=== PATIENT | female | born 1975 | race African-American/Black ===

== ENCOUNTER 2016-12-17 15:49 | Emergency (ER) | payer MEDICAID ==
[~2016-12-17 15:49] MED LIST: AMOX875T PO; FLUT1SPR9 EACH NARE; IBUP-232 PO; NAPR-576 PO
[2016-12-17 15:51] VITALS: BP 148/102; PULSE 82; RESP 16; TEMP 98.2; O2SAT 99
[2016-12-17 16:21] VITALS: BP_SYST 8
[2016-12-17] MEDS ORDERED: MAGICADU2 SWISH-SPIT (18:15)
[2016-12-17] MEDS ORDERED: PERI0.126 SWISH-SPIT (18:15)
[2016-12-17] MEDS ORDERED: AMOX500T PO (18:15)
--- NOTE | 2016-12-17 18:16 | PD ---
HPI Chief Complaint: Facial Pain or Swelling Time Seen by Provider: 18:12 Travel History International Travel<30 days: No Contact w/Intl Traveler<30days: No Traveled to known affect area: No History of Present Illness HPI 41-year-old female presents to the emergency Department with complaint of left facial pain 4 days. Pain radiates to her left ear. She has history of migraine headaches and is supposed to take Topamax but doesn't. Denies facial edema, erythema. She does have a left upper tooth that was supposed to have a root canal but she hasn't had done. Denies fever, chills, nausea, vomiting. Denies recent illness to include cough, nasal congestion, ear pain, sore throat. Has taken ibuprofen with some relief of pain. Has put a heating pack to her left face with good relief of pain. No known aggravating factors. Patient reports being allergic to Augmentin, Percocet, prednisone, Zithromax. She cannot take Augmentin because it makes her vomit. She requests amoxicillin as antibiotic if she has to take an antibiotic. No other modifying factors or associated signs and symptoms. PFSH Past Medical History Diminished Hearing: No Headaches: Yes Immunizations Current: No Migraines: Yes : 2 Para: 2 Dilation and Curettage (D&C): Yes Tubal Ligation: Yes Past Surgical History Genitourinary Surgery: Yes (UTERINE ABLASION) Gynecologic Surgery: Yes (UTERINE ABLATION) Hysterectomy: Yes (PARTIAL 2012) Social History Alcohol Use: No Tobacco Use: No Substance Use: No Allergies-Medications (Allergen,Severity, Reaction): Coded Allergies: Percocet (Verified Allergy, Severe, ITCHING, 12/17/16) Zithromax (Verified Allergy, Severe, Joint Pain, 12/17/16) Prednisone (Verified Allergy, Intermediate, 12/17/16) joint pain Augmentin (Verified Adverse Reaction, Intermediate, Nausea/Vomiting, ) Reported Meds & Prescriptions Reported Meds & Active Scripts Active Magic Mouthwash Adult Liq (Multi-Ingredient Mouthwash/Gargle) 120 Ml Susp 5 Ml SWISH-SPIT Q3HR PRN Each 5 mL contains: Nystatin 200,000 units, Diphenhydramine 4.25 mg, Viscous Lidocaine 10 mg, Mann syrup 0.8 mL Peridex Liq (Chlorhexidine Gluconate (Mouth) Liq) 0.12% Soln 15 Ml SWISH-SPIT BID 10 Days Amoxicillin 500 Mg Tab 500 Mg PO BID 10 Days Ibuprofen 600 Mg Tab 600 Mg PO Q6H PRN Flonase Allergy Relief Children Nasal [place] (Fluticasone Nasal [place]) 50 Mcg/ Act [place] 2 [place] EACH NARE DAILY 50 mcg/spray Amoxicillin 875 Mg Tab 875 Mg PO BID Naproxen 500 Mg Tab 500 Mg PO Q12HR PRN Review of Systems Except as stated in HPI: all other systems reviewed are Neg Physical Exam Narrative GENERAL: Well-nourished, well-developed female patient, in no acute distress; afebrile, nontoxic-appearing SKIN: Warm and dry. HEAD: Atraumatic. Normocephalic. No facial edema, erythema, tenderness on palpation. No lymphadenopathy. EYES: Pupils equal and round at 3 mm with brisk reaction. No scleral icterus. No injection or drainage. PERRLA. ENT: Mucosa pink and moist. No erythema or exudates. No uvular edema. No uvular , palatal, or tonsillar deviation. Airway patent. Nasal turbinates appear normal without nasal blood, purulent drainage or septal hematoma. EARS: Bilateral pinnae and external canals appear within normal limits. Bilateral tympanic membranes without erythema, dullness or perforation. MOUTH: Mucous membranes moist, no lesions, tongue and gums appear normal. Left upper tooth #13 with large dental caries and tenderness on palpation; surrounding gingiva is without obvious abscess, erythema, edema, drainage. NECK: Trachea midline. No lymphadenopathy. CARDIOVASCULAR: Regular rate and rhythm. No murmur appreciated. RESPIRATORY: No accessory muscle use. Breath sounds clear and equal bilaterally. GASTROINTESTINAL: Abdomen soft, non-tender, nondistended. Positive bowel sounds. No hepato-splenomegaly, or palpable masses. No guarding. MUSCULOSKELETAL: No obvious deformities. No clubbing. No cyanosis. No edema. NEUROLOGICAL: Awake and alert. Oriented 3. No obvious cranial nerve deficits. Motor grossly within normal limits. Normal speech. PSYCHIATRIC: Appropriate mood and affect; insight and judgment normal. Data Data Last Documented VS Vital Signs Date Time Temp Pulse Resp B/P Pulse Ox O2 Delivery O2 Flow Rate FiO2 12/17/16 16:21 812/17/16 15:51 98.2 82 16 99 MDM Medical Decision Making Medical Screen Exam Complete: Yes Emergency Medical Condition: Yes Medical Record Reviewed: Yes Differential Diagnosis Dentalgia, dental abscess, otitis media, sinusitis, migraine headache Narrative Course 41-year-old female physical exam consistent with left upper tooth #13 dentalgia and possible dental abscess. The tooth is with tenderness on palpation. Patient has adverse reaction to Augmentin of vomiting. She says she can take amoxicillin and requests it. Amoxicillin, Peridex mouth rinse, Magic mouthwash prescribed for home. Patient has ibuprofen. Instructed patient to follow up with dentist. Patient is medically cleared and stable for discharge. Discussed reasons to return to the emergency department. Instructed patient to follow up with primary care provider. Patient agrees with treatment plan. The patients vital signs are stable and the patient is stable for outpatient follow- up and treatment. Patient discharged home, stable and in no acute distress. Diagnosis Primary Impression: Dentalgia Referrals: Dentist Primary Care Physician Patient Instructions: Dental Abscess (ED), Dental Caries (ED), General Instructions, Toothache (ED) Additional Instructions: Complete full course of antibiotics Ibuprofen as directed and as needed to reduce pain and inflammation Use Magic mouthwash rinse as directed and as needed to decrease pain Use Peridex as directed for oral hygiene Warm compresses to the affected area Follow-up with dentist Follow-up with primary care provider Return to emergency department immediately with worsening of symptoms Med/Other Pt SpecificInfo: Prescription(s) given Scripts Zlkevveh-Wqxuzpmgzfvwvbl-Llytbmzpu Liq (Magic Mouthwash Adult Liq)120 Ml Susp5 Ml SWISH-SPIT Q3HR PRN (PAIN SCALE 1 TO 10) #120 ML Ref 0 Each 5 mL contains: Nystatin 200,000 units, Diphenhydramine 4.25 mg, Viscous Lidocaine 10 mg, Mann syrup 0.8 mL Prov:Lizet Burk 12/17/16 Chlorhexidine Gluconate (Mouth) Liq (Peridex Liq)0.12% Soln15 Ml SWISH-SPIT BID 10 Days Ref 0 Prov:Lizet Burk 12/17/16 Amoxicillin 500 Mg [id number] Mg PO BID 10 Days Ref 0 Prov:Lizet Burk 12/17/16 Disposition: DISCHARGE HOME Condition: Stable Lizet Burk Dec 17, 2016 18:16
== END 2016-12-17 18:37 | disposition home or self-care (01) ==
LOC: NEPB 15:49
DX: K08.89 Other specified disorders of teeth and supporting structures (principal)
CPT/HCPCS: 99283

== ENCOUNTER 2017-02-01 16:27 | Emergency (ER) | payer OTHER, MEDICAID ==
[~2017-02-01] VITALS: Ht 157.5 cm; Wt 68.0 kg
[~2017-02-01 16:27] MED LIST changes: +AMOX500T PO; +MAGICADU2 SWISH-SPIT; +PERI0.126 SWISH-SPIT
[2017-02-01 16:29] VITALS: BP 155/106; PULSE 90; RESP 20; TEMP 97.7; O2SAT 98
--- NOTE | 2017-02-01 18:49 | PD ---
HPI Chief Complaint: Cold / Flu Symptoms Time Seen by Provider: 18:49 Travel History International Travel<30 days: No Contact w/Intl Traveler<30days: No Traveled to known affect area: No History of Present Illness HPI 41-year-old female with no significant medical history presents to the emergency department for evaluation of cough, chest congestion, fever, sore throat worsening over last 4 days. Patient states her cough has been nonproductive. No nuchal rigidity. No visual disturbances. Denies any nausea , vomiting, diarrhea. Has no other symptoms to report. PFSH Past Medical History Medical History: Denies Significant Hx Diminished Hearing: No Headaches: Yes Immunizations Current: No Migraines: Yes : 2 Para: 2 Dilation and Curettage (D&C): Yes Tubal Ligation: Yes Past Surgical History Genitourinary Surgery: Yes (UTERINE ABLASION) Gynecologic Surgery: Yes (UTERINE ABLATION) Hysterectomy: Yes (PARTIAL) Social History Alcohol Use: No Tobacco Use: No Substance Use: No Allergies-Medications (Allergen,Severity, Reaction): Coded Allergies: Percocet (Verified Allergy, Severe, ITCHING, 02/01/17) Zithromax (Verified Allergy, Severe, Joint Pain, 02/01/17) Prednisone (Verified Allergy, Intermediate, 02/01/17) joint pain Augmentin (Verified Adverse Reaction, Intermediate, Nausea/Vomiting, ) Reported Meds & Prescriptions Reported Meds & Active Scripts Active Magic Mouthwash Adult Liq (Multi-Ingredient Mouthwash/Gargle) 120 Ml Susp 5 Ml SWISH-SPIT Q3HR PRN Each 5 mL contains: Nystatin 200,000 units, Diphenhydramine 4.25 mg, Viscous Lidocaine 10 mg, Mann syrup 0.8 mL Peridex Liq (Chlorhexidine Gluconate (Mouth) Liq) 0.12% Soln 15 Ml SWISH-SPIT BID 10 Days Amoxicillin 500 Mg Tab 500 Mg PO BID 10 Days Ibuprofen 600 Mg Tab 600 Mg PO Q6H PRN Flonase Allergy Relief Children Nasal [place] (Fluticasone Nasal [place]) 50 Mcg/ Act [place] 2 [place] EACH NARE DAILY 50 mcg/spray Amoxicillin 875 Mg Tab 875 Mg PO BID Naproxen 500 Mg Tab 500 Mg PO Q12HR PRN Review of Systems Except as stated in HPI: all other systems reviewed are Neg Physical Exam Narrative GENERAL: Well-nourished, well-developed female patient, no acute distress SKIN: Warm and dry. HEAD: Normocephalic. Atraumatic EYES: No scleral icterus. No injection or drainage. ENT: Mucosa pink and moist. No erythema without exudates. No uvular edema. No uvular, palatal, or tonsillar deviation. Airway patent. Nasal turbinates appear inflamed without nasal blood, purulent drainage or septal hematoma. NECK: Supple, trachea midline. Anterior cervical lymphadenopathy. CARDIOVASCULAR: Regular rate and rhythm without murmurs, gallops, or rubs. RESPIRATORY: Breath sounds equal bilaterally. No accessory muscle use. GASTROINTESTINAL: Abdomen soft, non-tender, nondistended. MUSCULOSKELETAL: No cyanosis, or edema. BACK: Nontender without obvious deformity. No CVA tenderness. Data Data Last Documented VS Vital Signs Date Time Temp Pulse Resp B/P Pulse Ox O2 Delivery O2 Flow Rate FiO2 02/01/17 18:37 Room Air 02/01/17 16:29 97.7 90 20 155/106 98 Orders Influenzae A/B Antigen (02/01/17 18:46) Group A Rapid Strep Screen (02/01/17 18:46) MDM Medical Decision Making Medical Screen Exam Complete: Yes Emergency Medical Condition: Yes Medical Record Reviewed: Yes Differential Diagnosis Influenza versus pharyngitis viral versus strep versus viral syndrome versus pneumonia Narrative Course 41-year-old female presents to the emergency department for evaluation. Patient appears overall well. She is afebrile here. Influenza rapid strep screen are sent. Patient is signed out to JERRY Valle. Disposition will pend his judgment. Condition: Stable Janneth Snow Feb 01, 2017 18:49
--- NOTE | 2017-02-01 19:25 | RADRPT ---
EXAM DATE/TIME: 02/01/2017 19:04 [facility] COMPARISON: No previous studies available for comparison. INDICATIONS : Severe cough for 4 days. MEDICAL HISTORY : None. SURGICAL HISTORY : None. ENCOUNTER: Initial ACUITY: 4 - 6 days PAIN SCORE: 1/10 LOCATION: Bilateral chest FINDINGS: No infiltrate, effusion or pneumothorax. Heart size is stable, upper limits of normal. Thoracic aorta is mildly tortuous. CONCLUSION: No pneumonia or other acute cardiopulmonary disease demonstrated. Boston Mccann MD on February 01, 2017 at 19:23 Board Certified Radiologist. This report was verified electronically.
--- NOTE | 2017-02-01 19:47 | PD ---
Physical Exam Date Seen by Provider: Feb 01, 2017 Time Seen by Provider: 19:45 Data Data Last Documented VS Vital Signs Date Time Temp Pulse Resp B/P Pulse Ox O2 Delivery O2 Flow Rate FiO2 02/01/17 18:37 Room Air 02/01/17 16:29 97.7 90 20 155/106 98 Orders Influenzae A/B Antigen (02/01/17 18:46) Group A Rapid Strep Screen (02/01/17 18:46) Chest, Single Ap (02/01/17 ) Strep Culture (Group A) (02/01/17 18:50) MDM Medical Record Reviewed: Yes Supervised Visit with JANEY: No Interpretation(s) Last 24 hours Impressions Chest X-Ray 02/01/17 0000 Signed Impressions: Service Date/Time: Wednesday, February 01, 2017 19:04 - CONCLUSION: No pneumonia or other acute cardiopulmonary disease demonstrated. Boston Mccann MD Rapid strep: Negative Influenza: Negative Differential Diagnosis MDM: High Differential diagnoses: Pneumonia, bronchitis, URI, asthma, RAD, strep throat, influenza Narrative Course The patient's influenza is negative. The rapid strep is negative. Chest x- rays negative. This is URI Diagnosis Primary Impression: URI (upper respiratory infection) Qualified Code: J06.9 - Viral upper respiratory tract infection Patient Instructions: General Instructions Departure Forms: Tests/Procedures, Work Release Special Instructions: No work 2-3 days Additional Instruction: Rest. Increase fluids. Tylenol and Advil. Robitussin-DM. Followup with your Dr. in one week. Return to the ER for any problems. Med/Other Pt SpecificInfo: No Change to Meds Disposition: 01 DISCHARGE HOME Condition: Stable Дмитрий Robles Feb 01, 2017 19:47
== END 2017-02-01 20:12 | disposition home or self-care (01) ==
LOC: NEPB 16:27
DX: J06.9 Acute upper respiratory infection, unspecified (principal)
CPT/HCPCS: 71010; 87081; 87804; 87880; 99283

== ENCOUNTER 2017-03-16 17:59 | Emergency (ER) | payer MEDICAID ==
[~2017-03-16] VITALS: Ht 154.9 cm; Wt 68.0 kg
[2017-03-16 18:04] VITALS: BP 197/118; PULSE 67; RESP 20; TEMP 97.7; O2SAT 98
[2017-03-16 18:14] VITALS: BP 169/100; PULSE 68
== END 2017-03-16 19:00 | disposition left against medical advice (07) ==
LOC: NED 17:59
DX: R51 Headache (principal); Z53.21 Procedure and treatment not carried out due to patient leaving prior to being seen by health care provider
CPT/HCPCS: 99281

== ENCOUNTER 2017-04-22 15:35 | Emergency (ER) | payer MEDICAID ==
[~2017-04-22] VITALS: Ht 154.9 cm; Wt 67.0 kg
[2017-04-22 15:37] VITALS: BP 154/106; PULSE 85; RESP 20; TEMP 98; O2SAT 98
[2017-04-22] MEDS ORDERED: FLUT1SPR9 EACH NARE (16:05)
[2017-04-22] MEDS ORDERED: CIPR500T2 PO (16:05)
--- NOTE | 2017-04-22 16:09 | PD ---
HPI Chief Complaint: Headache Time Seen by Provider: 16:05 Travel History International Travel<30 days: No Contact w/Intl Traveler<30days: No Traveled to known affect area: No History of Present Illness HPI 42-year-old black female presents to emergency department complaints of left maxillary sinus pressure and pain. She states that she has had problems with allergies and sinus in the past. She has been on Flonase. Now for the past few weeks she's had increasing pressure and pain. She denies any fever chills. No ear pain. Positive runny nose and congestion. No nausea vomiting. No abdominal pain or diarrhea. Patient states that she uses her Flonase intermittently. She's been using [id number] Mucinex without relief. History of migraines but does not feel that this is a migraine headache. PFSH Past Medical History Narrative Medical Migraines, sinus disease Diminished Hearing: No Headaches: Yes Immunizations Current: No Migraines: Yes : 2 Para: 2 Dilation and Curettage (D&C): Yes Tubal Ligation: Yes Past Surgical History Narrative Surgical Tubal ligation, hysterectomy Genitourinary Surgery: Yes (UTERINE ABLASION) Gynecologic Surgery: Yes (UTERINE ABLATION) Hysterectomy: Yes (PARTIAL) Social History Alcohol Use: No Tobacco Use: No Substance Use: No Allergies-Medications (Allergen,Severity, Reaction): Coded Allergies: Percocet (Verified Allergy, Severe, ITCHING, 04/22/17) Zithromax (Verified Allergy, Severe, Joint Pain, 04/22/17) Prednisone (Verified Allergy, Intermediate, 04/22/17) joint pain Augmentin (Verified Adverse Reaction, Intermediate, Nausea/Vomiting, ) Reported Meds & Prescriptions Reported Meds & Active Scripts Active Magic Mouthwash Adult Liq (Multi-Ingredient Mouthwash/Gargle) 120 Ml Susp 5 Ml SWISH-SPIT Q3HR PRN Each 5 mL contains: Nystatin 200,000 units, Diphenhydramine 4.25 mg, Viscous Lidocaine 10 mg, Mann syrup 0.8 mL Peridex Liq (Chlorhexidine Gluconate (Mouth) Liq) 0.12% Soln 15 Ml SWISH-SPIT BID 10 Days Amoxicillin 500 Mg Tab 500 Mg PO BID 10 Days Ibuprofen 600 Mg Tab 600 Mg PO Q6H PRN Flonase Allergy Relief Children Nasal [place] (Fluticasone Nasal [place]) 50 Mcg/ Act [place] 2 [place] EACH NARE DAILY 50 mcg/spray Amoxicillin 875 Mg Tab 875 Mg PO BID Naproxen 500 Mg Tab 500 Mg PO Q12HR PRN Review of Systems Except as stated in HPI: all other systems reviewed are Neg Physical Exam Narrative GENERAL: Well-developed, well-nourished in no acute distress. Nontoxic appearing. HEAD: Normocephalic, positive pain on percussion of the left maxillary sinus. EYES: Pupils equal round and reactive. Extraocular motions intact. No scleral icterus. No injection or drainage. ENT: TMs clear without erythema. The external auditory canals clear. Nose: clear . Edema of the turbinates. Posterior pharynx is pink and moist. No tonsillar edema or exudate. Uvula midline. Airway patent. NECK: Trachea midline.Supple, nontender, moves head freely. No central bony tenderness or spasm. CARDIOVASCULAR: Regular rate and rhythm without murmurs, gallops, or rubs. RESPIRATORY: Clear to auscultation. Breath sounds equal bilaterally. No wheezes , rales, or rhonchi. GASTROINTESTINAL: Abdomen soft, non-tender, nondistended. No hepato-splenomegaly , or palpable masses. No guarding. EXTREMITIES: No clubbing, cyanosis, or edema. No joint tenderness, effusion, or edema noted. BACK: Nontender without deformity or crepitance. No flank tenderness. Data Data Last Documented VS Vital Signs Date Time Temp Pulse Resp B/P Pulse Ox O2 Delivery O2 Flow Rate FiO2 04/22/ 15:37 98.0 85 20 154/106 98 Room Air MDM Medical Decision Making Medical Screen Exam Complete: Yes Emergency Medical Condition: Yes Medical Record Reviewed: Yes Differential Diagnosis Differential diagnosis: Otitis media, sinusitis, mastoiditis, migraine Narrative Course Patient will be treated for acute left maxillary sinusitis Diagnosis Primary Impression: acute left maxillary sinusitis Patient Instructions: General Instructions Additional Instructions: Rest. Increase fluids. Sudafed. Rosa pot Cipro and nasal steroid. (Must use nasal steroid daily on a continuous basis for relief. Was ( Follow-up with a medical doctor in one week. Med/Other Pt SpecificInfo: Prescription(s) given Scripts Ciprofloxacin 500 Mg [id number] Mg PO BID #20 TAB Ref 0 Prov:Bert Balderas MD 04/22/17 Fluticasone Nasal [place] (Flonase Allergy Relief Children Nasal [place])50 Mcg/Act Spray2 [place] EACH NARE DAILY #1 BOTTLE 50 mcg/spray Prov:Bert Balderas MD 04/22/17 Disposition: 01 DISCHARGE HOME Condition: Stable Дмитрий Robles April 22, 2017 16:09
== END 2017-04-22 16:27 | disposition home or self-care (01) ==
LOC: NEPK 15:35
DX: J01.00 Acute maxillary sinusitis, unspecified (principal)
CPT/HCPCS: 99284

== ENCOUNTER 2017-04-28 21:58 | Emergency (ER) | payer MEDICAID ==
[~2017-04-28 21:58] MED LIST changes: +CIPR500T2 PO
[2017-04-28 22:00] VITALS: BP 187/118; PULSE 81; RESP 18; TEMP 98.5; O2SAT 98
--- NOTE | 2017-04-28 22:05 | PD ---
Physical Exam Time Seen by Provider: 22:02 Narrative 42yo F c/o COATS and sinus infection x 1week. HX of similar COATS's. Did not finish Cipro that was prescribed for sinus infection because they made her feel sick. Reports nausea without vomiting. Denies fever. Patient seen in triage. VS reviewed. Awaiting bed placement. Data Data Last Documented VS Vital Signs Date Time Temp Pulse Resp B/P Pulse Ox O2 Delivery O2 Flow Rate FiO2 04/28/17 22:00 98.5 81 18 187/118 98 Room Air MDM Supervised Visit with JANEY: Lizet Gee April 28, 2017 22:05
[2017-04-28] MEDS ORDERED: PROCHLORPERAZINE INJ 10 MG/2 ML VIAL IV PUSH ONE (22:45)
[2017-04-28] MEDS ORDERED: KETOROLAC TROMETHAMINE 30 MG/ML (IVP) VIAL IV PUSH ONE (22:45)
--- NOTE | 2017-04-28 22:50 | PD ---
HPI Chief Complaint: Headache Time Seen by Provider: 22:34 Travel History International Travel<30 days: No Contact w/Intl Traveler<30days: No Traveled to known affect area: No History of Present Illness HPI 42yo F with PMH of migraine headache presents to the ED with c/o right sided headache for about 1 week. Pt was here and diagnosed with sinusitis on 04/22/17 and given ciprofloxacin. States headache is relieved with advil but it returns. Associated with phonophobia, photophobia and nausea. Denies any trauma, fever, visual changes, chest pain, sob, n/v, abdominal pain, focal weakness or numbness. Pt has been here multiple times for similar headaches and states tramadol helps. Pt has seen a neurologist and had extensive work up with MRI and states she tried topamax but didnt like it so she is not on anything for her headache. PFSH Past Medical History Diminished Hearing: No Headaches: Yes Immunizations Current: No Migraines: Yes ?: Not : 2 Para: 2 Dilation and Curettage (D&C): Yes Tubal Ligation: Yes Past Surgical History Genitourinary Surgery: Yes (UTERINE ABLASION) Gynecologic Surgery: Yes (UTERINE ABLATION) Hysterectomy: Yes (PARTIAL) Social History Alcohol Use: No Tobacco Use: No Substance Use: No Allergies-Medications (Allergen,Severity, Reaction): Coded Allergies: Percocet (Verified Allergy, Severe, ITCHING, 04/28/17) Zithromax (Verified Allergy, Severe, Joint Pain, 04/28/17) Prednisone (Verified Allergy, Intermediate, 04/28/17) joint pain Augmentin (Verified Adverse Reaction, Intermediate, Nausea/Vomiting, ) Reported Meds & Prescriptions Reported Meds & Active Scripts Active Amlodipine (Amlodipine Besylate) 5 Mg Tab 5 Mg PO DAILY 14 Days Tylenol (Acetaminophen) 325 Mg Tab 650 Mg PO Q6H PRN Review of Systems Except as stated in HPI: all other systems reviewed are Neg Physical Exam Narrative GENERAL: 42yo F not in distress. SKIN: Focused skin assessment warm/dry. HEAD: Atraumatic. Normocephalic. +TTP right frontal and maxillary sinus. EYES: Pupils equal and round at 3mm bilaterally. EOMI. No scleral icterus. No injection or drainage. ENT: No nasal bleeding or discharge. Mucous membranes pink and moist. NECK: Trachea midline. No JVD. CARDIOVASCULAR: Regular rate and rhythm. No murmur appreciated. RESPIRATORY: No accessory muscle use. Clear to auscultation. Breath sounds equal bilaterally. GASTROINTESTINAL: Abdomen soft, non-tender, nondistended. MUSCULOSKELETAL: No obvious deformities. No clubbing. No cyanosis. No edema. NEUROLOGICAL: Awake and alert. No obvious cranial nerve deficits. Motor grossly within normal limits. Normal speech. PSYCHIATRIC: Appropriate mood and affect; insight and judgment normal. Data Data Last Documented VS Vital Signs Date Time Temp Pulse Resp B/P Pulse Ox O2 Delivery O2 Flow Rate FiO2 04/28/17 23:54 83 14 174/106 98 Room Air 04/28/17 22:00 98.5 Orders Ketorolac Inj (Toradol Inj) (04/28/17 22:45) Prochlorperazine Inj (Compazine Inj) (04/28/17 22:45) Amlodipine (Norvasc) (04/29/17 00:00) Ondansetron Inj (Zofran Inj) (04/29/17 00:15) MDM Medical Decision Making Medical Screen Exam Complete: Yes Emergency Medical Condition: Yes Differential Diagnosis Sinus headache vs. migraine headache vs. tension headache Narrative Course 42yo M with right sided headache that feels like her other headache. Pt has been here multiple times for similar headaches. No red flags. Pt given toradol 30mg IV, zofran and compazine 10mg IV and reevaluated at bedside. States the headache has completely resolved. BP is elevated at 174/106. I have reviewed pt's vital signs in the past and she has always have elevated blood pressure and baseline diastolic of over 100. I will give pt amlodipine here and start her on it. She does not have a PMD so I will refer her to [facility]. Diagnosis Primary Impression: Headache Qualified Code: R51 - Nonintractable episodic headache, unspecified headache type Referrals: Yanira Ace MD call for appointment Chronic headache Patient Instructions: General Instructions Departure Forms: Tests/Procedures Additional Instructions: Please follow up with [facility] [phone] for a primary care physician who can evaluate you for hypertension. Please call for same day appointment or schedule in advance. Please call neurology for next available appointment if needed. Return to the ED if symptoms worsen. Med/Other Pt SpecificInfo: Prescription(s) given Scripts Amlodipine 5 Mg Tab5 Mg PO DAILY 14 Days Ref 0 Prov:Lainey Monaco DO 04/29/17 Acetaminophen (Tylenol)325 Mg [id number] Mg PO Q6H PRN (PAIN SCALE 1 TO 4) #20 TAB Ref 0 Prov:Lainey Monaco DO 04/28/17 Disposition: 01 DISCHARGE HOME Condition: Stable Lainey Monaco DO April 28, 2017 22:50
[2017-04-28] MEDS ORDERED: TYLE325T PO (23:49)
[2017-04-28 23:54] VITALS: BP 174/106; PULSE 83; RESP 14; O2SAT 98
[2017-04-29] MEDS ORDERED: amLODIPine BESYLATE 5 MG TAB PO ONE
[2017-04-29] MEDS ORDERED: AMLO5TAB2 PO (00:03)
[2017-04-29] MEDS ORDERED: ONDANSETRON HCL 4 MG/2 ML VIAL IV PUSH ONE (00:15)
== END 2017-04-29 01:15 | disposition home or self-care (01) ==
LOC: NEPD 21:58
DX: R51 Headache (principal)
CPT/HCPCS: 96374; 96375; 99284; J0780; J1885; J2405

== ENCOUNTER 2017-08-09 12:36 | Emergency (ER) | payer OTHER, MEDICAID ==
[~2017-08-09] VITALS: Ht 154.9 cm; Wt 70.0 kg
[~2017-08-09 12:36] MED LIST changes: +AMLO5TAB2 PO; -AMOX500T PO; -AMOX875T PO; -CIPR500T2 PO; -FLUT1SPR9 EACH NARE; -IBUP-232 PO; -MAGICADU2 SWISH-SPIT; -NAPR-576 PO; -PERI0.126 SWISH-SPIT; +TYLE325T PO
[2017-08-09 12:39] VITALS: BP 161/110; PULSE 95; RESP 15; TEMP 97.8; O2SAT 99
[2017-08-09 12:48] VITALS: BP 168/115; PULSE 88; RESP 18; TEMP 97.9; O2SAT 97
--- NOTE | 2017-08-09 13:13 | PD ---
HPI Chief Complaint: Headache Time Seen by Provider: 13:01 Travel History International Travel<30 days: No Contact w/Intl Traveler<30days: No Traveled to known affect area: No History of Present Illness HPI This patient complains of headache. She has long history of frequent migraine headaches. Had headache for several days. No injury or fever. No thunderclap onset. She's been here multiple times for migraine headaches. Severity is moderate. No alleviating factors. PFSH Past Medical History Diminished Hearing: No Headaches: Yes Immunizations Current: No Migraines: Yes Tetanus Vaccination: > 5 Years ?: Not : 2 Para: 2 Dilation and Curettage (D&C): Yes Tubal Ligation: Yes Past Surgical History Genitourinary Surgery: Yes (UTERINE ABLASION) Gynecologic Surgery: Yes (UTERINE ABLATION) Hysterectomy: Yes (PARTIAL) Social History Alcohol Use: No Tobacco Use: No Substance Use: No Allergies-Medications (Allergen,Severity, Reaction): Coded Allergies: acetaminophen (Unverified Allergy, Severe, ITCHING, 08/09/17) azithromycin (Unverified Allergy, Severe, Joint Pain, 08/09/17) oxycodone (Unverified Allergy, Severe, ITCHING, 08/09/17) ciprofloxacin (Verified Allergy, Intermediate, vomiting, 08/09/17) prednisone (Unverified Allergy, Intermediate, 08/09/17) joint pain amoxicillin (Unverified Adverse Reaction, Intermediate, Nausea/Vomiting, ) clavulanic acid (Unverified Adverse Reaction, Intermediate, Nausea/ Vomiting, 08/09/17) Reported Meds & Prescriptions Reported Meds & Active Scripts Active Amlodipine (Amlodipine Besylate) 5 Mg Tab 5 Mg PO DAILY 14 Days Tylenol (Acetaminophen) 325 Mg Tab 650 Mg PO Q6H PRN Review of Systems General / Constitutional: No: Fever Eyes: No: Visual changes HENT: Positive: Headaches Cardiovascular: No: Chest Pain or Discomfort Respiratory: No: Shortness of Breath Gastrointestinal: Positive: Nausea, No: Abdominal Pain Genitourinary: No: Dysuria Musculoskeletal: No: Pain Skin: No Rash Neurologic: Positive: Headache, No: Weakness Psychiatric: No: Depression Endocrine: No: Polydipsia Hematologic/Lymphatic: No: Easy Bruising Physical Exam Narrative GENERAL: Well-nourished, well-developed patient with headache . SKIN: Focused skin assessment reveals no rash and nodules. Skin is Warm and dry. HEAD: Atraumatic. Normocephalic. EYES: Pupils equal and round. No scleral icterus. No injection or drainage. ENT: No nasal bleeding or discharge. Mucous membranes pink and moist. NECK: Trachea midline. No JVD. No meningeal signs CARDIOVASCULAR: Regular rate and rhythm. No murmur appreciated. RESPIRATORY: No accessory muscle use. Clear to auscultation. Breath sounds equal bilaterally. GASTROINTESTINAL: Abdomen soft, non-tender, nondistended. Hepatic and splenic margins not palpable. MUSCULOSKELETAL: No obvious deformities. No clubbing. No cyanosis. No edema. NEUROLOGICAL: Awake and alert. No obvious cranial nerve deficits. Motor grossly within normal limits. Normal speech. PSYCHIATRIC: Appropriate mood and affect; insight and judgment normal. Data Data Last Documented VS Vital Signs Date Time Temp Pulse Resp B/P (MAP) Pulse Ox O2 Delivery O2 Flow Rate FiO2 08/09/17 12:48 97.9 88 18 168/115 (132) 97 Room Air Orders Orders Ondansetron Inj (Zofran Inj) (08/09/17 13:15) Morphine Inj (Morphine Inj) (08/09/17 13:15) MDM Medical Decision Making Medical Screen Exam Complete: Yes Emergency Medical Condition: Yes Medical Record Reviewed: Yes Differential Diagnosis Differential diagnosis includes migraine, tension headache, cluster headache, meningitis. Narrative Course I have reviewed the patient's electronic medical record. She has been here for migraine headaches multiple times. She had a brain CT last year that was normal Patient neurologically intact. No red flags to suggest emergent imaging is indicated. Feels like a migraine for her but persisting so she came here I gave her injection of morphine and Zofran Recommend primary care follow-up Diagnosis Primary Impression: Headache Qualified Codes: R51 - Headache Additional Instructions: The patient was advised to follow up with their physician and return if they worsen. Med/Other Pt SpecificInfo: Other Disposition: 01 DISCHARGE HOME Condition: Stable Norm Freitas MD Aug 09, 2017 13:13
[2017-08-09] MEDS ORDERED: ONDANSETRON HCL 4 MG/2 ML VIAL IM ONE (13:15)
[2017-08-09] MEDS ORDERED: MORPHINE SULFATE 4 MG/ML INJ IM ONE (13:15)
[2017-09-14] MEDS ORDERED: LEVA500T20 PO (08:53)
[2017-09-14] MEDS ORDERED: HYDR-3516 PO (10:42)
== END 2017-08-09 14:47 | disposition home or self-care (01) ==
LOC: NEPD 12:36
DX: R51 Headache (principal)
CPT/HCPCS: 96372; 99284; J2270; J2405

== ENCOUNTER → 2017-09-14 | Day surgery (SDC) | payer MEDICAID, OTHER ==
[~2017-09-14] VITALS: Ht 157.5 cm; Wt 68.0 kg
[~2017-09-14] MED LIST changes: +BACITRACIN TOP OINT 15 GM TUBE ONE; +CHLORHEXIDINE GLUCONATE 2 % 1 PACK (2 CLOTHS) TOPICAL PRN; +CLINDAMYCIN 600 MG/NS 100 ML IV SCH; +CLINDAMYCIN PHOS 900 MG/6 ML VIAL ONE; +FAMOTIDINE 20 MG/2 ML VIAL ONE; +HYDR-3516 PO; +INSULIN HUMAN REGULAR 1,000 UNITS/10 ML VIAL SQ PRN; +KETOROLAC TROMETHAMINE 60 MG/2 ML (IM) VIAL IM ONE; +LACTATED RINGER'S 1000 ML INJ 1,000 ML IV ONE; +LACTATED RINGER'S 1000 ML IV PRN; +LEVA500T20 PO; +LIDOCAINE 0.5%/EPINEPHrine 1:200,000 SOLN 50 ML VIAL ONE; +METOPROLOL TARTRATE 25 MG TAB PO PRN; +MIDAZOLAM HCL 2 MG/2 ML VIAL ONE; +ONDANSETRON HCL 4 MG/2 ML VIAL IV PUSH ONE; +OXYMETAZOLINE HCL 0.05% 15 ML NASAL SPRAY ONE; +POVIDONE IODINE 5% (ANTISEPSIS KIT) 4 APPLICATIONS EACH NARE PRN; +PROPOFOL 200 MG/20 ML AMP IV ONE; +SODIUM CHLORID 0.9% 500 ML IV PRN; +SODIUM CHLORIDE 0.9% INJ 100 ML ONE; +SUCCINYLCHOLINE CHLORIDE 200 MG/10 ML VIAL IV ONE
[2017-09-14 08:35] VITALS: PULSE 90
[2017-09-14 09:00] VITALS: TEMP 98.3
[2017-09-14 10:00] VITALS: BP 156/108; PULSE 72; RESP 16; O2SAT 100
--- NOTE | 2017-09-21 13:24 | MP ---
cc: ELOISE MCKENZIE M.D. DATE OF SURGERY September 14, [address] Eloise Mckenzie PREOPERATIVE DIAGNOSES 1. Nasal airway obstruction. 2. Nasal septal deviation. 3. Hypertrophy of inferior turbinates. POSTOPERATIVE DIAGNOSES 1. Nasal airway obstruction. 2. Nasal septal deviation. 3. Hypertrophy of inferior turbinates. OPERATION PERFORMED 1. Open repair nasal septal fracture. 2. Is bilateral submucosal resection of inferior turbinates. INDICATIONS Documented in the history and physical. DESCRIPTION OF OPERATION The patient was taken to OR #2 and placed in the supine position. Following induction of general anesthesia and intubation, the nose was packed bilaterally with cotton pledgets saturated in 0.05% Oxymetazoline. The nasal septal mucosa and inferior turbinates were injected with a total of 12 mV of Xylocaine with epinephrine 1:100,000. She was then prepped and draped for surgery. Packing was removed and a hemitransfixion incision was made in the left nasal vestibule and through this incision the mucosa of septum was elevated bilaterally as far as the junction of the bony and cartilaginous septum. This exposed the quadrangular cartilage which showed evidence of old fracture with numerous comminuted fragments obstructing the nasal airway bilaterally. A cumulative area of 2 x 2 cm was removed in a piecemeal fashion preserving 1.5 cm dorsal and caudal cartilaginous struts. The mucosa was then elevated from the bony septum and this was removed with Lissett forceps. The maxillary crest was removed using a 6-mm [place] chisel. The incision was then closed with a running suture of 4-0 chromic and the mucosal layers of septum were approximated to each other with a quilting stitch of 4-0 plain gut. The inferior turbinates then fractured out medially and stab incisions were opened along their inferior surfaces. Through these incisions the submucosal soft tissue was reduced using a curette and preserving the conchal bone. The incisions were then cauterized using the suction Bovie at 45 broussard and the remnants of the inferior turbinates were then we lateralized to the lateral nasal wall. The nose was then packed with 5.5-cm Rapid Rhino packs and each was inflated with 5 mL of air. The procedure was then terminated. The patient was reversed from anesthesia and taken to Recovery in good condition. There were no complications. Blood loss was 60 mL. MD WILLOW Walter/HUGO /7:43 AM /1:15 PM
== END | disposition home or self-care (01) ==
LOC: PHSDC 06:05
PROVIDERS: ATTEND Otolaryngology
DX: J34.2 Deviated nasal septum (principal); J34.3 Hypertrophy of nasal turbinates
CPT/HCPCS: 00160; 30140; 30520; J0330; J1885; J2250; J2405; J3010; J7120

== ENCOUNTER 2017-12-03 04:06 | Emergency (ER) | payer OTHER ==
[~2017-12-03] VITALS: Ht 157.5 cm; Wt 70.0 kg
[~2017-12-03 04:06] MED LIST changes: -AMLO5TAB2 PO; -BACITRACIN TOP OINT 15 GM TUBE ONE; -CHLORHEXIDINE GLUCONATE 2 % 1 PACK (2 CLOTHS) TOPICAL PRN; -CLINDAMYCIN 600 MG/NS 100 ML IV SCH; -CLINDAMYCIN PHOS 900 MG/6 ML VIAL ONE; -FAMOTIDINE 20 MG/2 ML VIAL ONE; -INSULIN HUMAN REGULAR 1,000 UNITS/10 ML VIAL SQ PRN; -KETOROLAC TROMETHAMINE 60 MG/2 ML (IM) VIAL IM ONE; -LACTATED RINGER'S 1000 ML INJ 1,000 ML IV ONE; -LACTATED RINGER'S 1000 ML IV PRN; -LEVA500T20 PO; +LEVA500T33 PO; -LIDOCAINE 0.5%/EPINEPHrine 1:200,000 SOLN 50 ML VIAL ONE; -METOPROLOL TARTRATE 25 MG TAB PO PRN; -MIDAZOLAM HCL 2 MG/2 ML VIAL ONE; -ONDANSETRON HCL 4 MG/2 ML VIAL IV PUSH ONE; -OXYMETAZOLINE HCL 0.05% 15 ML NASAL SPRAY ONE; -POVIDONE IODINE 5% (ANTISEPSIS KIT) 4 APPLICATIONS EACH NARE PRN; -PROPOFOL 200 MG/20 ML AMP IV ONE; -SODIUM CHLORID 0.9% 500 ML IV PRN; -SODIUM CHLORIDE 0.9% INJ 100 ML ONE; -SUCCINYLCHOLINE CHLORIDE 200 MG/10 ML VIAL IV ONE; -TYLE325T PO
[2017-12-03 04:09] VITALS: BP 161/102; PULSE 79; RESP 16; TEMP 98; O2SAT 99
[2017-12-03] MEDS ORDERED: SODIUM CHLOR 0.9% 1000 ML INJ 1,000 ML IV SCH (04:17)
--- NOTE | 2017-12-03 04:20 | PD ---
HPI Chief Complaint: Headache Time Seen by Provider: 04:13 Travel History International Travel<30 days: No Contact w/Intl Traveler<30days: No Traveled to known affect area: No History of Present Illness HPI 42-year-old female here for evaluation of a headache. The patient has history of migraine headaches. She presents today with 4 days of left-sided head pain described as pressure, gradual onset, currently 8 out of 10, intermittently worse and intermittently better at times, no modifying factors. She denies photophobia. She feels a little bit nauseous but has not vomited. No fevers or chills. No neck stiffness. No visual changes. PFSH Past Medical History Diminished Hearing: No Headaches: Yes Medical other: Yes (ANEMIA) Immunizations Current: No Migraines: Yes Tetanus Vaccination: < 5 Years Influenza Vaccination: No ?: Not : 2 Para: 2 Dilation and Curettage (D&C): Yes Tubal Ligation: Yes Past Surgical History Abdominal Surgery: No AICD: No Cardiac Surgery: No Ear Surgery: No Endocrine Surgery: No Eye Surgery: No Genitourinary Surgery: No Gynecologic Surgery: Yes (UTERINE ABLATION FOR FIBROIDS, PARTIAL HYSTERECTOMY, TUBAL LIGATION) Hysterectomy: Yes (PARTIAL) Joint Replacement: No Pacemaker: No Thoracic Surgery: No Other Surgery: Yes Social History Alcohol Use: No Tobacco Use: No Substance Use: No Allergies-Medications (Allergen,Severity, Reaction): Coded Allergies: acetaminophen (Unverified Allergy, Severe, ITCHING, 12/03/17) azithromycin (Unverified Allergy, Severe, Joint Pain, 12/03/17) oxycodone (Unverified Allergy, Severe, ITCHING, 12/03/17) ciprofloxacin (Verified Allergy, Intermediate, vomiting, 12/03/17) prednisone (Unverified Allergy, Intermediate, Joint Pain, 12/03/17) amoxicillin (Unverified Adverse Reaction, Intermediate, Nausea/Vomiting, ) clavulanic acid (Unverified Adverse Reaction, Intermediate, Nausea/ Vomiting, 12/03/17) Reported Meds & Prescriptions Reported Meds & Active Scripts Active No Active Prescriptions or Reported Medications Review of Systems Except as stated in HPI: all other systems reviewed are Neg Physical Exam Narrative GENERAL: Well-developed, well-nourished, pleasant, comfortable, no apparent distress. SKIN: Focused skin assessment warm/dry. HEAD: Atraumatic. Normocephalic. EYES: Pupils equal and round. No scleral icterus. No injection or drainage. ENT: Mucous membranes pink and moist. NECK: Trachea midline. No JVD. No nuchal rigidity. CARDIOVASCULAR: Regular rate and rhythm. No murmur appreciated. RESPIRATORY: No accessory muscle use. Clear to auscultation. Breath sounds equal bilaterally. GASTROINTESTINAL: Abdomen soft, non-tender, nondistended. MUSCULOSKELETAL: No obvious deformities. No clubbing. No cyanosis. No edema. NEUROLOGICAL: Awake and alert. No obvious cranial nerve deficits. Motor grossly within normal limits. Normal speech. PSYCHIATRIC: Appropriate mood and affect; insight and judgment normal. Data Data Last Documented VS Vital Signs Date Time Temp Pulse Resp B/P (MAP) Pulse Ox O2 Delivery O2 Flow Rate FiO2 12/03/17 04:15 18 98 Nasal Cannula 12/03/17 04:09 98.0 79 161/102 (121) Orders Orders Basic Metabolic Panel (Bmp) (12/03/17 04:17) Complete Blood Count With Diff (12/03/17 04:17) Iv Access Insert/Monitor (12/03/17 04:17) Ecg Monitoring (12/03/17 04:17) Oximetry (12/03/17 04:17) Sodium Chlor 0.9% 1000 Ml Inj (Ns 1000 M (12/03/17 04:17) Sodium Chloride 0.9% Flush (Ns Flush) (12/03/17 04:30) Metoclopramide Inj (Reglan Inj) (12/03/17 04:30) Ketorolac Inj (Toradol Inj) (12/03/17 04:30) Influenzae A/B Antigen (12/03/17 04:19) Labs Laboratory Tests Test 12/03/17 04:23 White Blood Count 4.9 TH/MM3 Red Blood Count 4.42 MIL/MM3 Hemoglobin 14.0 GM/DL Hematocrit 41.0 % Mean Corpuscular Volume 92.8 FL Mean Corpuscular Hemoglobin 31.6 PG Mean Corpuscular Hemoglobin Concent 34.1 % Red Cell Distribution Width 13.0 % Platelet Count 266 TH/MM3 Mean Platelet Volume 7.7 FL Neutrophils (%) (Auto) 59.0 % Lymphocytes (%) (Auto) 30.4 % Monocytes (%) (Auto) 8.7 % Eosinophils (%) (Auto) 1.4 % Basophils (%) (Auto) 0.5 % Neutrophils # (Auto) 2.9 TH/MM3 Lymphocytes # (Auto) 1.5 TH/MM3 Monocytes # (Auto) 0.4 TH/MM3 Eosinophils # (Auto) 0.1 TH/MM3 Basophils # (Auto) 0.0 TH/MM3 CBC Comment DIFF FINAL Differential Comment Blood Urea Nitrogen 10 MG/DL Creatinine 0.71 MG/DL Random Glucose 100 MG/DL Calcium Level 8.7 MG/DL Sodium Level 139 MEQ/L Potassium Level 3.4 MEQ/L Chloride Level 106 MEQ/L Carbon Dioxide Level 26.8 MEQ/L Anion Gap 6 MEQ/L Estimat Glomerular Filtration Rate 109 ML/MIN MDM Medical Decision Making Medical Screen Exam Complete: Yes Emergency Medical Condition: Yes Differential Diagnosis Tension headache, cluster headache, migraine headache, SAH/meningitis/ encephalitis unlikely Narrative Course Vital signs reviewed. CBC is unremarkable. BMP is essentially unremarkable. Influenza is negative. The patient was given a liter of normal saline IV, IV Reglan, and IV Toradol, and on reassessment she states her headache has completely resolved and she feels better. She would like to be discharged home. I do not believe that the etiology of her headache is from an SAH/meningitis/encephalitis. She is overall very comfortable appearing and there is no nuchal rigidity. She has had several headaches in the past, however this one did not resolve with her usual Advil for migraines. At this point she is stable for discharge home with outpatient follow-up with her primary care physician this week. She was informed on when to return to the emergency department. She verbalizes understanding and agreement with plan. Diagnosis Primary Impression: Headache Qualified Codes: R51 - Headache Referrals: Primary Care Physician 3 days Additional Instructions: Follow-up with your primary care physician this week. Return to the emergency department for worsening symptoms or any other concerns. Scripts No Active Prescriptions or Reported Meds Disposition: 01 DISCHARGE HOME Condition: Stable Cosme Knight MD Dec 03, 2017 04:20
[2017-12-03] MEDS ORDERED: METOCLOPRAMIDE HCL 10 MG/2 ML VIAL IV PUSH ONE (04:30)
[2017-12-03] MEDS ORDERED: SODIUM CHLORIDE 0.9% FLUSH 10 ML FLUSH IV FLUSH PRN (04:30)
[2017-12-03] MEDS ORDERED: KETOROLAC TROMETHAMINE 30 MG/ML (IVP) VIAL IV PUSH ONE (04:30)
[2017-12-03 04:39] LABS: AUTOMATED NEUTROPHIL # 2.9 TH/MM3 (1.8-7.7); BASOPHIL % 0.5 % (0.0-2.0); EOSINOPHIL # 0.1 TH/MM3 (0-0.4); EOSINOPHIL % 1.4 % (0.0-4.0); LYMPH % 30.4 % (9.0-44.0); LYMPHOCYTE # 1.5 TH/MM3 (1.0-4.8); MEAN CELL VOLUME 92.8 FL (80.0-100.0); MEAN CORPUSCULAR HEMOGLOBIN 31.6 PG (27.0-34.0); MEAN CORPUSCULAR HGB CONC 34.1 % (32.0-36.0); MEAN PLATELET VOLUME 7.7 FL (7.0-11.0); MONO % 8.7 % (0.0-8.0); MONOCYTE # 0.4 TH/MM3 (0-0.9); PLATELET COUNT 266 TH/MM3 (150-450); RED BLOOD COUNT 4.42 MIL/MM3 (4.00-5.30); WHITE BLOOD COUNT 4.9 TH/MM3 (4.0-11.0)
[2017-12-03 04:53] LABS: BICARBONATE 26.8 MEQ/L (21.0-32.0); CALCIUM 8.7 MG/DL (8.5-10.1); CREATININE 0.71 MG/DL (0.50-1.00)
[2017-12-03 05:45] VITALS: O2SAT 98
== END 2017-12-03 06:19 | disposition home or self-care (01) ==
LOC: NEPC 04:06
DX: R51 Headache (principal)
CPT/HCPCS: 80048; 85025; 87804; 96361; 96374; 96375; 99284; J1885; J2765; J7030

== ENCOUNTER 2018-01-04 16:53 | Emergency (ER) | payer OTHER ==
[~2018-01-04] VITALS: Ht 157.5 cm; Wt 68.2 kg
[2018-01-04 16:54] VITALS: BP 175/111; PULSE 76; RESP 16; TEMP 97.9; O2SAT 100
[2018-01-04 18:44] VITALS: BP 175/116; PULSE 75; RESP 20; O2SAT 100
[2018-01-04] MEDS ORDERED: METOCLOPRAMIDE INJ 10 MG in SODIUM CHLORIDE 0.9% INJ 50 ML IV ONE (19:00)
[2018-01-04] MEDS ORDERED: hydrALAZINE HCL 20 MG/ML VIAL IV PUSH ONE (19:00)
--- NOTE | 2018-01-04 19:02 | PD ---
HPI Chief Complaint: Headache Time Seen by Provider: 18:45 Travel History International Travel<30 days: No Contact w/Intl Traveler<30days: No Traveled to known affect area: No History of Present Illness HPI 42yo F with PMH of frequent headache is here with c/o left sided headache for 2 days. Said pain is constant and somewhat better with the ice pack on her head. Denies any fever, neck pain, visual changes, n/v, abdominal pain, focal weakness or numbness. Pt's blood pressure is very elevated here and said she has never had this before. Pt was seen here last month for similar headache. Denies any trauma and it feels like her usual headache but she comes here when she cant get rid of her headaches. Saw neurologist and had imagings 2 years ago but said he could not figure out why she gets the headaches. PFSH Past Medical History Anemia: Yes Diminished Hearing: No Headaches: Yes Medical other: Yes (ANEMIA) Immunizations Current: No Migraines: Yes ?: Not : 2 Para: 2 Dilation and Curettage (D&C): Yes Tubal Ligation: Yes Past Surgical History Abdominal Surgery: No AICD: No Cardiac Surgery: No Ear Surgery: No Endocrine Surgery: No Eye Surgery: No Genitourinary Surgery: No Gynecologic Surgery: Yes (UTERINE ABLATION FOR FIBROIDS, PARTIAL HYSTERECTOMY, TUBAL LIGATION) Hysterectomy: Yes (PARTIAL) Joint Replacement: No Pacemaker: No Thoracic Surgery: No Other Surgery: Yes (RHINOPLASTY-08/2017) Social History Alcohol Use: No Tobacco Use: No Substance Use: No Allergies-Medications (Allergen,Severity, Reaction): Coded Allergies: acetaminophen (Unverified Allergy, Severe, ITCHING, 01/04/18) azithromycin (Unverified Allergy, Severe, Joint Pain, 01/04/18) oxycodone (Unverified Allergy, Severe, ITCHING, 01/04/18) ciprofloxacin (Verified Allergy, Intermediate, vomiting, 01/04/18) prednisone (Unverified Allergy, Intermediate, Joint Pain, 01/04/18) amoxicillin (Unverified Adverse Reaction, Intermediate, Nausea/Vomiting, ) clavulanic acid (Unverified Adverse Reaction, Intermediate, Nausea/ Vomiting, 01/04/18) Reported Meds & Prescriptions Reported Meds & Active Scripts Active No Active Prescriptions or Reported Medications Review of Systems Except as stated in HPI: all other systems reviewed are Neg Physical Exam Narrative GENERAL: 42yo F in mild distress. SKIN: Focused skin assessment warm/dry. HEAD: Atraumatic. Normocephalic. EYES: Pupils equal and round at 3mm bilaterally. EOMI. ENT: No nasal bleeding or discharge. Mucous membranes pink and moist. NECK: Trachea midline. No JVD. CARDIOVASCULAR: Regular rate and rhythm. No murmur appreciated. RESPIRATORY: No accessory muscle use. Clear to auscultation. Breath sounds equal bilaterally. GASTROINTESTINAL: Abdomen soft, non-tender, nondistended. MUSCULOSKELETAL: No obvious deformities. No clubbing. No cyanosis. No edema. NEUROLOGICAL: Awake and alert. No obvious cranial nerve deficits. Motor grossly within normal limits. Normal speech. Sensation intact. PSYCHIATRIC: Appropriate mood and affect; insight and judgment normal. Data Data Last Documented VS Vital Signs Date Time Temp Pulse Resp B/P (MAP) Pulse Ox O2 Delivery O2 Flow Rate FiO2 01/04/18 21:15 74 18 100/74 (83) 100 Room Air 01/04/18 16:[address] Brain W/O Iv Contrast(Rout) (01/04/18 ) Bhcg Screen Qualitative (01/04/18 18:54) Basic Metabolic Panel (Bmp) (01/04/18 18:54) Metoclopramide Inj (Reglan Inj) (01/04/18 19:00) Hydralazine Inj (Apresoline Inj) (01/04/18 19:00) Ketorolac Inj (Toradol Inj) (01/04/18 20:30) Diphenhydramine Inj (Benadryl Inj) (01/04/18 20:30) Labs Laboratory Tests Test 01/04/18 20:00 Blood Urea Nitrogen 9 MG/DL Creatinine 0.81 MG/DL Random Glucose 103 MG/DL Calcium Level 9.1 MG/DL Sodium Level 137 MEQ/L Potassium Level 3.3 MEQ/L Chloride Level 102 MEQ/L Carbon Dioxide Level 30.6 MEQ/L Anion Gap 4 MEQ/L Estimat Glomerular Filtration Rate 94 ML/MIN Beta HCG, Qualitative LESS THAN 1 MIU/ML MDM Medical Decision Making Medical Screen Exam Complete: Yes Emergency Medical Condition: Yes Differential Diagnosis Hypertensive emergency vs. migraine headache vs. tension headache vs. cluster headache Narrative Course 42yo F with left sided headache for 2 days. It feels like her usual headache but her blood pressure was 175/111. Said she never had elevated blood pressure before. Pt given hydralazine 10mg IV and reglan IV. CT brain was completed given her markedly elevated diastolic blood pressure. CT brain negative. Mild chronic right maxillary sinus disease. Reevaluated at bedside and said headache has resolved. Did not want toradol and benadryl so it was not given. BP 100/74. Return precautions given. Diagnosis Primary Impression: Headache Qualified Codes: R51 - Headache Patient Instructions: General Instructions Departure Forms: Tests/Procedures Additional Instructions: Please follow up with your primary care physician or neurologist. Return to the ED if symptoms worsen. Med/Other Pt SpecificInfo: Prescription(s) given Scripts Ibuprofen (Ibuprofen) 600 Mg Tab 600 MG PO Q8HR Y for PAIN, #20 TAB 0 Refills Prov: Lainey Monaco DO 01/04/18 Disposition: 01 DISCHARGE HOME Condition: Stable Lainey Monaco DO Jan 04, 2018 19:02
--- NOTE | 2018-01-04 20:13 | RADRPT ---
EXAM DATE/TIME: 01/04/2018 19:42 [facility] COMPARISON: No previous studies available for comparison. INDICATIONS : Cephalgia. RADIATION DOSE: 39.32 CTDIvol (mGy) MEDICAL HISTORY : None SURGICAL HISTORY : Hysterectomy. ENCOUNTER: Initial ACUITY: 1 day PAIN SCALE: 10/10 LOCATION: cranial TECHNIQUE: Multiple contiguous axial images were obtained of the head. Using automated exposure control and adj ustment of the mA and/or kV according to patient size, radiation dose was kept as low as reasonably a chievable to obtain optimal diagnostic quality images. DICOM format image data is available electro nically for review and comparison. FINDINGS: CEREBRUM: The ventricles are normal for age. No evidence of midline shift, mass lesion, hemorrhage or acute in farction. No extra-axial fluid collections are seen. POSTERIOR FOSSA: The cerebellum and brainstem are intact. The 4th ventricle is midline. The cerebellopontine angle i s unremarkable. EXTRACRANIAL: The visualized portion of the orbits is intact. Mild chronic right maxillary sinus disease. SKULL: The calvaria is intact. No evidence of skull fracture. CONCLUSION: Normal examination of the brain for a patient of this age. Mild chronic right maxillary sinus disesocorro Mcnair MD on January 04, 2018 at 20:10 Board Certified Radiologist. This report was verified electronically.
[2018-01-04] MEDS ORDERED: KETOROLAC TROMETHAMINE 30 MG/ML (IVP) VIAL IV PUSH ONE (20:30)
[2018-01-04] MEDS ORDERED: diphenhydrAMINE HCL 50 MG/ML VIAL IV PUSH ONE (20:30)
[2018-01-04 20:51] LABS: BICARBONATE 30.6 MEQ/L (21.0-32.0); BLOOD UREA NITROGEN 9 MG/DL (7-18); CALCIUM 9.1 MG/DL (8.5-10.1); CHLORIDE 102 MEQ/L (98-107); CREATININE 0.81 MG/DL (0.50-1.00); GLOMERULAR FILTRATION RATE 94 ML/MIN (>89); GLUCOSE,RANDOM 103 MG/DL (74-106); SODIUM (NA) 137 MEQ/L (136-145)
[2018-01-04 21:15] VITALS: BP 100/74; PULSE 74; RESP 18; O2SAT 100
[2018-01-04] MEDS ORDERED: IBUP-232 PO (21:38)
== END 2018-01-04 21:48 | disposition home or self-care (01) ==
LOC: NEPD 16:53
DX: R51 Headache (principal)
CPT/HCPCS: 70450; 80048; 84703; 96365; 96366; 96375; 99284; J0360; J2765